=== PATIENT | female | born 1940 | race Caucasian/White ===

== ENCOUNTER 2018-09-22 15:23 | Emergency (ER) | payer MEDICARE, OTHER ==
[2018-09-22] MEDS: morphine 10 MG INJ IM (17:10)
[2018-09-22] MEDS ORDERED: ACETAMINOPHEN 120 MG SUPP (17:57)
== END 2018-09-22 20:32 | disposition home or self-care (01) ==
LOC: E/R 20:32
DX: M54.42 Lumbago with sciatica, left side (principal); I10 Essential (primary) hypertension; Z79.84 Long term (current) use of oral hypoglycemic drugs
CPT/HCPCS: 96372; 99284-25